=== PATIENT | male | born 1990 | race Caucasian/White ===

== ENCOUNTER 2017-10-13 21:08 | Emergency (ER) | payer MEDICAID ==
[~2017-10-13] VITALS: Ht 180.3 cm; Wt 215.0 kg
[2017-10-13 21:14] VITALS: BP 136/86
[2017-10-13] MEDS ORDERED: [UNRECOGNIZED DRUG - REMARK] (21:49)
[2017-10-13 21:51] LABS: MICROSCOPIC NOT IND
[2017-10-13 21:54] LABS: CULTURE INDICATED? NO
== END 2017-10-13 22:16 | disposition home or self-care (01) ==
LOC: ED 21:45
DX: G89.11 Acute pain due to trauma (principal); M25.562 Pain in left knee; R30.0 Dysuria; Z88.0 Allergy status to penicillin; Z88.6 Allergy status to analgesic agent; Z88.2 Allergy status to sulfonamides
CPT/HCPCS: 81003; 99285